=== PATIENT | male | born 1990 | race African-American/Black ===

== ENCOUNTER 2020-06-18 08:36 | Emergency (ER) | payer BC, SELFPAY ==
--- NOTE | 2020-06-18 08:58 | EDPHYS ---
Physician Documentation [facility] Name: Jennifer Mccain Age: 29 yrs Sex: Male : 1990 Arrival Date: 06/18/2020 Time: 08:38 Bed 24 Private MD: ED Physician Alex Ramos HPI: 06/18 09:05 This 29 yrs old Black Male presents to ER via Ambulatory with complaints of Toothache. kdr 09:05 The patient presents with pain, redness, swelling. The problem is located in the upper kdr left first molar, upper left second molar and lower left second molar. Onset: The symptoms/episode began/occurred gradually, 2 day(s) ago. Duration: The symptoms are continuous, and are steadily getting worse. Modifying factors: The symptoms are alleviated by nothing, the symptoms are aggravated by air, chewing, cold fluids, food. Associated signs and symptoms: The patient has no apparent associated signs or symptoms. Severity of symptoms: At their worst the symptoms were mild, moderate, just prior to arrival, in the emergency department the symptoms are unchanged. The patient has experienced similar episodes in the past, a few times, Every year in the winter. The patient has not recently seen a physician. Historical: - Allergies: 08:45 No Known Allergies; hb - Immunization history:: Adult Immunizations up to date. - Social history:: Smoking status: Patient reports the use of cigarette tobacco products, smokes one-half pack cigarettes per day. ROS: 09:05 Constitutional: Negative for fever, chills, and weight loss, Eyes: Negative for injury, kdr pain, redness, and discharge, Neck: Negative for injury, pain, and swelling. 09:05 ENT: Positive for dental pain, of the left buccal mucosa, upper left first molar, upper left second molar, lower left second molar and lower left first molar. Exam: 09:05 Constitutional: This is a well developed, well nourished patient who is awake, alert, kdr and in no acute distress. Head/Face: Normocephalic, atraumatic. Eyes: Pupils equal round and reactive to light, extra-ocular motions intact. Lids and lashes normal. Conjunctiva and sclera are non-icteric and not injected. Cornea within normal limits. Periorbital areas with no swelling, redness, or edema. Neck: Trachea midline, no thyromegaly or masses palpated, and no cervical lymphadenopathy. Supple, full range of motion without nuchal rigidity, or vertebral point tenderness. No Meningismus. 09:05 ENT: Mouth: Lips: normal, Oral mucosa: normal, moist, Gums: pink, reddened, swollen, Tongue: is normal, abscess, is not appreciated, drooling, is not appreciated. Vital Signs: 08:43 BP 163 / 102; Pulse 71; Resp 16; Temp 100; Pulse Ox 100% on R/A; Weight 72.57 kg; hb Height 5 ft. 6 in. (167.64 cm); Pain 7/10; 08:43 Body Mass Index 25.82 (72.57 kg, 167.64 cm) hb MDM: 08:57 Patient medically screened. kdr 09:05 Data reviewed: vital signs, nurses notes. Counseling: I had a detailed discussion with kdr the patient and/or guardian regarding: the historical points, exam findings, and any diagnostic results supporting the discharge/admit diagnosis, the need for outpatient follow up. Administered Medications: 09:03 Drug: Amoxicillin 500 mg Route: PO; em 09:10 Follow up: Response: Medication administered at discharge. em 09:03 Drug: Ibuprofen 800 mg Route: PO; em 09:10 Follow up: Response: Medication administered at discharge. em Disposition: 06/18/20 08:57 Discharged to Home. Impression: Dental Carries. - Condition is Stable. - Discharge Instructions: Dental Caries, [id number]. - Prescriptions for Amoxicillin 500 mg Oral Capsule - take 1 capsule by ORAL route every 8 hours for 10 days; 30 tablet. Flagyl 500 mg Oral Tablet - take 1 tablet by ORAL route every 12 hours for 7 days; 14 tablet. Tramadol 50 mg Oral Tablet - take 1 tablet by ORAL route every 8 hours as needed; 12 tablet. - Medication Reconciliation Form, Thank You Letter, Antibiotic Education, Prescription Opioid Use, Work release form form. - Follow up: Private Physician; When: 1 - 2 days; Reason: If symptoms return, Further diagnostic work-up, Recheck today's complaints, Continuance of care, Re-evaluation by your physician. - Problem is an acute exacerbation. - Symptoms have improved. Signatures: Alex Ramos MD MD [facility] Manuel Post RN RN Anna Graves RN RN Corrections: (The following items were deleted from the chart) 08:45 08:43 Social history: Smoking status: Patient denies any tobacco usage or history of. [facility] 09:13 08:57 06/18/2020 08:57 Discharged to Home. Impression: Dental Carries. Condition is em Stable. Forms are Medication Reconciliation Form, Thank You Letter, Antibiotic Education, Prescription Opioid Use. Follow up: Private Physician; When: 1 - 2 days; Reason: If symptoms return, Further diagnostic work-up, Recheck today's complaints, Continuance of care, Re-evaluation by your physician. Problem is an acute exacerbation. Symptoms have improved. kdr
--- NOTE | 2020-06-18 08:58 | ER ---
Nurse's Notes [facility] Name: Jennifer Mccain Age: 29 yrs Sex: Male : 1990 Arrival Date: 06/18/2020 Time: 08:38 Bed 24 Private MD: Diagnosis: Dental Carries Presentation: 06/18 08:43 Chief complaint: Left upper tooth pain and left sided facial swelling x 3 days. hb Coronavirus screen: At this time, the client does not indicate any symptoms associated with coronavirus-19. Ebola Screen: No symptoms or risks identified at this time. Initial Sepsis Screen: Does the patient meet any 2 criteria? No. Patient's initial sepsis screen is negative. Does the patient have a suspected source of infection? No. Patient's initial sepsis screen is negative. Risk Assessment: Do you want to hurt yourself or someone else? Patient reports no desire to harm self or others. Onset of symptoms was June 16, 2020. 08:43 Method Of Arrival: Ambulatory hb 08:43 Acuity: YRIS 4 hb Historical: - Allergies: 08:45 No Known Allergies; hb - Immunization history:: Adult Immunizations up to date. - Social history:: Smoking status: Patient reports the use of cigarette tobacco products, smokes one-half pack cigarettes per day. Screenin:00 Abuse screen: Denies threats or abuse. Nutritional screening: No deficits noted. em Tuberculosis screening: No symptoms or risk factors identified. Fall Risk None identified. Assessment: 09:00 General: Appears in no apparent distress. comfortable, Behavior is calm, cooperative, em appropriate for age. Pain: Complains of pain in lower left first molar and lower left second molar and upper left second molar and upper left first molar Pain currently is 7 out of 10 on a pain scale. Neuro: Level of Consciousness is awake, alert, obeys commands, Oriented to person, place, time, situation, Appropriate for age. Cardiovascular: Capillary refill < 3 seconds Patient's skin is warm and dry. Respiratory: Airway is patent Respiratory effort is even, unlabored, Respiratory pattern is regular, symmetrical. EENT: Oral mucosa is moist. Derm: Skin is intact, is healthy with good turgor, Skin is pink, warm \T\ dry. Musculoskeletal: Capillary refill < 3 seconds, Range of motion: intact in all extremities. Vital Signs: 08:43 BP 163 / 102; Pulse 71; Resp 16; Temp 100; Pulse Ox 100% on R/A; Weight 72.57 kg; hb Height 5 ft. 6 in. (167.64 cm); Pain 7/10; 08:43 Body Mass Index 25.82 (72.57 kg, 167.64 cm) hb ED Course: 08:38 Patient arrived in ED. rg4 08:44 Triage completed. hb 08:45 Arm band placed on. hb 08:46 Alex Ramos MD is Attending Physician. kdr 08:57 Manuel Post, RN is Primary Nurse. em 09:00 Patient has correct armband on for positive identification. Bed in low position. Call em light in reach. 09:11 Patient did not have IV access during this emergency room visit. em 09:11 No provider procedures requiring assistance completed. em Administered Medications: 09:03 Drug: Amoxicillin 500 mg Route: PO; em 09:10 Follow up: Response: Medication administered at discharge. em 09:03 Drug: Ibuprofen 800 mg Route: PO; em 09:10 Follow up: Response: Medication administered at discharge. em Outcome: 08:57 Discharge ordered by . kdr 09:13 Discharged to home ambulatory. em 09:13 Condition: good 09:13 Discharge instructions given to patient, Instructed on discharge instructions, follow up and referral plans. medication usage, Demonstrated understanding of instructions, follow-up care, medications, Prescriptions given X 3. 09:13 Patient left the ED. em Signatures: Alex Ramos MD MD [facility] Manuel Pots RN RN Anna Graves RN RN Telma Young rg4 Corrections: (The following items were deleted from the chart) 08:45 08:43 Social history: Smoking status: Patient denies any tobacco usage or history of. hbhb
[2020-06-18] MEDS ORDERED: AMOXICILLIN TRIHYDR 250 MG CAP ONE (09:16)
[2020-06-18] MEDS ORDERED: IBUPROFEN 400 MG TAB ONE (09:16)
[2020-06-18 09:22] VITALS: BP 163/102; TEMP 100; O2SAT 100
== END 2020-06-18 09:13 | disposition home or self-care (01) ==
LOC: ER 08:36
DX: K02.9 Dental caries, unspecified (principal); F17.210 Nicotine dependence, cigarettes, uncomplicated
CPT/HCPCS: 99283